=== PATIENT | male | born 1970 | race Caucasian/White ===

== ENCOUNTER 2025-01-01 10:00 | Emergency (ER) | payer OTHER, SELFPAY ==
[2025-01-01 10:11] VITALS: BP 140/96
[2025-01-01 10:53] VITALS: BP 146/82
--- NOTE | 2025-01-01 10:53 | ED.GENMED ---
History of Present Illness
General
Chief Complaint: Chest Pain
Source: patient
Exam Limitations: none
Time Seen by Provider: 01/01/25 10:52
Nursing documentation reviewed up to this point in time: agreed with
History of Present Illness
History of Present Illness:
54-year-old male with history of HLD, BPH, kidney stones presents for left-sided chest pain, left mid thoracic back pain which she states feels like 'aching, like a burning ache and squeeze, then it releases and it squeezes again and he sometimes
feels it in the left wrist. He states there is a little aching pain in the left mid thoracic area at this time. Tender under his left axilla chest wall when he presses on it. Denies any new workout routines or overuse or injury. He denies fever or
chills. He has felt more short of breath when working out, sweating more, when he doesn't usually sweat, taking linger time between sets when working out...'I just feel off.' Denies abdominal pain. Denies N/V/D/C. Denies lightheadedness or
dizziness.
Pt works out, strength training 5-6 days a week, is 'Pescatarian' eats only fruits and vegetables and seafood, takes supplements such as CoQ10, Fish oil, 'I take very good care of my body.'
He moved in September and has not been able to 'do as much Cardio' as usual, He had 2 friends his age of [place] recently who also took care of their bodies.
States he had a normal Calcium test 2 years ago.
Medications:
Avodart for BPH
Testosterone 200 mg followed by endocrinology
Many supplements baby aspirins
Past History
Past History
ED Past Medical History: Other (Prostatic hypertrophy)
ED Past Surgical History: None
Social History
Tobacco: Other (Chewing tobacco)
Alcohol: Occasional
Drug: None
Personal: Single
Employment: Employed
Family History
Family History: CAD
Review of Systems
Review of Systems
Allergies reviewed?: Yes
All Other Systems: ROS reviewed and negative except as documented in HPI and ROS
Phy Exam
Physical Exam
Physical Exam:
GENERAL: No acute distress. A&Ox3.
CONSTITUTIONAL: Afebrile.
EYES: clear, conjunctivae normal
ENMT: moist mucus membranes, Pharynx nl
RESPIRATORY: Regular respirations, nonlabored, lungs clear.
CARDIOVASCULAR: Regular rate and rhythm, no murmurs, no rubs.
GI: Soft, nontender, normal BS
MUSCULOSKELETAL: Trigger point at the mid left trapezius muscle. Deep palpation of this area immediately reproduces his back pain. Anterior chest wall nontender to palpation, there is tenderness to palpation of the chest wall under the left
axilla and rib cage. Moves with ease. Well perfused.
SKIN: Warm, dry, pink
PSYCH: Normal mood and affect. Well kept, interactive and appropriate
NEUROLOGIC: Awake, alert and oriented. No focal neurological deficits
Scores
Heart Score for Chest Pain Patients
STEMI patient?: Not applicable
Course
Orders/Labs/Results
Orders:
Orders
01/01/25 10:00
ECG [Electrocardiogram (*1)] Urgent
Reason for Study: Chest Pain
01/01/25 10:01
EKG- Treatment ONCE
01/01/25 11:27
CR Chest - 2 Views Urgent
Comment:
Reason For Exam: chest pain
01/01/25 11:38
Complete Blood Count/With Diff Urgent
Comprehensive Metabolic Panel Urgent
Troponin I Urgent
Abnormal Lab Results
01/01/25
11:38
WBC 4.4 L 10^3/uL
(4.8-10.8)
MCH 32.1 H pg
(27.0-31.0)
MPV 11.0 H fL
(7.4-10.4)
Monocytes % 9.4 H %
(1.7-9.3)
Alkaline Phosphatase 37 L U/L
(38-126)
01/01/25 11:38
01/01/25 11:38
Vital Signs
Initial and Last Documented VS:
Initial Vital Signs
Temp Pulse Resp BP Pulse Ox
97.9 F 72 16 140/96 99
01/01/25 10:11 01/01/25 10:11 01/01/25 10:11 01/01/25 10:11 01/01/25 10:11
Last Documented Vital Signs
Temp Pulse Resp BP Pulse Ox
97.9 F 56 11 117/66 95
01/01/25 10:11 01/01/25 13:45 01/01/25 13:45 01/01/25 13:51 01/01/25 13:45
MDM/Problems Addressed
Differential Diagnosis Includes:
Musculoskeletal pain, OR, cervical radiculopathy
MDM/Problems Addressed:
54-year-old male with history of HLD, BPH, kidney stones presents for left-sided chest pain, left mid thoracic back pain which she states feels like 'aching, like a burning ache and squeeze, then it releases and it squeezes again and he sometimes
feels it in the left wrist. He states there is a little aching pain in the left mid thoracic area at this time. Tender under his left axilla chest wall when he presses on it. Denies any new workout routines or overuse or injury. He denies fever or
chills. He has felt more short of breath when working out, sweating more, when he doesn't usually sweat, taking linger time between sets when working out...'I just feel off.' Denies abdominal pain. Denies N/V/D/C. Denies lightheadedness or
dizziness.
Pt works out, strength training 5-6 days a week, is 'Pescatarian' eats only fruits and vegetables and seafood, takes supplements such as CoQ10, Fish oil, 'I take very good care of my body.'
He moved in September and has not been able to 'do as much Cardio' as usual, He had 2 friends his age of [place] recently who also took care of their bodies.
States he had a normal Calcium test 2 years ago.
EKG: NSR
12:30 PM:
CBC normal
CMP normal
Troponin normal
1:45 PM: Chest x-ray NAD
Patient has a definite trigger point in the left mid trapezius. Palpation of this area immediately reproduces his pain. With all his other recent activity and the fact that he works out frequently this is almost likely a combination of
musculoskeletal pain, trigger point and possibly cervical radiculopathy with the left wrist pain.
No indication of cardiac etiology of his symptoms
BP 117/66
Stable for discharge
All pt's questions answered, he is appreciative of the care and comfortable with plan. He declined when offered muscle relaxant.
*Pulse Oximetry
SaO2: 99
Oxygen Mode of Delivery: Room air
Patient hypoxic: no
*EKG
EKG Intrepretation Date: 01/01/25
Interpretation: normal
Rate: normal
Rhythm: sinus
[place]: normal axis
Interval: normal interval
QRS Pattern: normal QRS
Ischemia: no ischemia
*Critical Care Note
Total Time (30-74mins, 75-104mins- exclusive of procedures): Not Applicable
ED Attending Note
-
Portions of this chart may have been created with voice recognition software.� Occasional wrong word or��sound alike� substitutions may have occurred due to the inherent limitations of voice recognition software.
Discharge Plan
Departure
Patient Disposition: Home (Routine Discharge)
Date of Disposition: 01/01/25
Time of Disposition: 13:47
Patient with high blood pressure during this ER visit?: No
Condition: Good
Discharge Problem:
Atypical chest pain, Trigger point of thoracic region
Instructions: Chest Pain That Is Not Caused by the Heart (DC), Musculoskeletal Pain
Prescriptions:
No Action
niacin 500 MG tablet extended release 24 hr
500 mg PO DAILY
dutasteride [Avodart] 0.5 MG capsule
0.5 mg PO DAILY
multivitamin [Daily Multiple] 1 EACH tablet
1 ea PO DAILY
ascorbic acid (vitamin C) [Vitamin C] 1,000 MG tablet
1,000 mg PO DAILY
taurine 500 MG capsule
250 mg PO BID
magnesium 30 MG tablet
30 mg PO DAILY
vitamin B complex [Neurodep] 1 CAP capsule
1 cap PO DAILY
cholecalciferol (vitamin D3) [Vitamin D3] 4,000 UNIT capsule
4,000 unit PO DAILY
potassium gluconate 600 MG tablet
99 mg PO DAILY
Coq10 Sg 100 Softgel
200 mg PO DAILY
Aspirin Low (Enteric Coated):
81 mg PO DAILY Qty: 0 0RF
Referrals:
Bryson Verdugo MD [Active, Cardiology] - Next open appointment
Kavon Silva DO [Family Provider, Internal Medicine] - As needed
Activity Restrictions/Additional Instructions:
As we discussed, your workup here today shows nothing worrisome. Specifically no indication of a heart attack.
Follow-up with your family doctor if your symptoms do not resolve within the next week
I have provided you the name of a cardiac doctor to use if needed
You have a trigger point in the left mid trapezius muscle. Gentle massage, heat, avoid activity that aggravates the pain until it is better. This appears to be musculoskeletal symptoms, muscles of the back, under the arm and chest wall spasms.
You could also have some radicular pain from the neck into the chest, back and left wrist.
Interventions
Interventions:
*Risk Screen - Suicide Last Done: 01/01/25 10:11
*General Assessment Last Done: 01/01/25 10:11
*Neglect/Abuse Screening Last Done: 01/01/25 14:03
*ED- Fall Risk Assessment Last Done: 01/01/25 14:03
*ED COVID-19 Vaccine History Last Done: 01/01/25 11:40
*ED Influenza Vaccine History Last Done: 01/01/25 11:40
*Nursing Disposition Last Done: 01/01/25 14:03
ED- Cardiac Assessment Last Done: 01/01/25 11:39
Discharge Date and Time
Discharge Date/Time: 01/01/25 14:03
Print Language: [id number]
[2025-01-01 11:00] VITALS: BP 151/95
[2025-01-01 11:46] LABS: Hematocrit 46.0 % (39.0-52.0); Hemoglobin 16.0 g/dL (13.0-18.0); Mean Corp Hgb Conc. 34.8 g/dL (33.0-37.0); Mean Corpuscular Volume 92.2 fL (80.0-94.0); Nucleated Red Blood Cells % 0 % (-); Platelet Count 161 10^3/uL (130-400); Red Cell Dist. Width 13.4 % (11.5-14.5)
[2025-01-01 12:00] VITALS: BP 162/110
[2025-01-01 12:15] LABS: Troponin I < 0.012 ng/ml
[2025-01-01 12:21] LABS: ALT (SGPT) 46 U/L (0-50); AST (SGOT) 44 U/L (17-59); Albumin 4.2 g/dl (3.5-5.0); Alkaline Phosphatase 37 U/L (38-126); Blood Urea Nitrogen 17 mg/dl (9-20); Calcium 9.0 mg/dl (8.4-10.2); Carbon Dioxide 29 mmol/L (22-30); Chloride 102 mmol/L (98-107); Glucose 84 mg/dl (70-99); Potassium 4.7 mmol/L (3.5-5.1); Sodium 136 mmol/L (135-145); Total Protein 6.8 g/dl (6.3-8.2); eGFR > 60.00
[2025-01-01 13:51] VITALS: BP 117/66
== END 2025-01-01 14:03 | disposition home or self-care (01) ==
LOC: EMR 10:00
PROVIDERS: Registered Nurse; EMERGENCY PHYSICIAN Emergency Medicine; FAMILY PHYSICIAN Internal Medicine
DX: R07.89 Other chest pain (principal); M79.10 Myalgia, unspecified site; M54.6 Pain in thoracic spine; E78.5 Hyperlipidemia, unspecified; N40.0 Benign prostatic hyperplasia without lower urinary tract symptoms; Z79.82 Long term (current) use of aspirin
CPT/HCPCS: 99284; 71046; 80053; 84484; 85025; 93005